=== PATIENT | male | born 2000 | race Two or more races ===

== ENCOUNTER 2023-07-28 12:21 | Emergency (ER) | payer OTHER ==
[~2023-07-28] VITALS: Ht 180.3 cm; Wt 82.7 kg
[2023-07-28 12:31] VITALS: TEMP 98
[2023-07-28] MEDS ORDERED: BACITRACIN 0.9 GM PACKET OINTMENT TP ONE (14:15)
[2023-07-28] MEDS ORDERED: KETOROLAC TROMETHAMINE 30 MG/ML VIAL IM ONE (14:15)
[2023-07-28] MEDS ORDERED: LIDOCAINE 1% 10 ML VIAL SQ ONE (14:15)
[2023-07-28 15:30] VITALS: BP 124/61; PULSE 59; RESP 17
[2023-07-28] MEDS ORDERED: AMOX TR/POT CLAV 875 MG/125 MG TABLET PO ONE (15:30)
[2023-07-28] MEDS ORDERED: IBUP-1492 PO (15:51)
[2023-07-28] MEDS ORDERED: BACI28.410 TP (15:51)
[2023-07-28] MEDS ORDERED: AMOX1TAB16 PO (15:51)
== END 2023-07-28 16:02 | disposition home or self-care (01) ==
LOC: EMS 12:29
DX: S61.213A Laceration without foreign body of left middle finger without damage to nail, initial encounter (principal); X58.XXXA Exposure to other specified factors, initial encounter; Y93.89 Activity, other specified; Y92.89 Other specified places as the place of occurrence of the external cause; Y99.8 Other external cause status
CPT/HCPCS: 99283; 73140; 12001; 96372; J1885; J3490